=== PATIENT | male | born 1965 | race Caucasian/White ===

== ENCOUNTER 2025-01-24 09:03 | Emergency (ER) | payer BC, SELFPAY ==
--- NOTE | 2025-01-24 09:06 | ED_ITS ---
HPI - General Adult General Chief complaint: Skin/Abscess/Foreign Body Stated complaint: lyme disease Time Seen by Provider: 01/24/25 09:06 59-year-old male patient presents to the [facility] with request for a medication refill. Patient states he is from [place] and visiting from out of town and he is being treated for Lyme disease. Patient states he forgot his doxycycline at home and is just needing a couple days worth of the doxycycline medication. Patient states he was bit by a tick to the left side back in October and did have a bull's eye and has been taking doxycycline 100 mg b.i.d. and was on his 8th day of treatment when he left to go out of town. Patient states he is going to be in town for about 2-3 days. Patient denies any fevers states his only symptom is fatigue and that the bull's eye is starting to go away. Source: patient Mode of arrival: ambulatory Limitations: no limitations Related Data Home Medications ?Medication ?Instructions ?Recorded ?Confirmed ?Last Taken ?Type atorvastatin 20 mg tablet mg 01/24/25 Unknown History doxycycline hyclate 100 mg tablet mg 01/24/25 Unknown History Allergies Allergy/AdvReac Type Severity Reaction Status Date / Time No Known Allergies Allergy Verified 01/24/25 09:10 Review of Systems Review of Systems: CONSTITUTIONAL: Denies fever, chills, or sweats. positive fatigue EYES: Denies visual changes, redness, or discharge. ENT: Denies rhinorrhea, congestion, sore throat, or otalgia. CARDIOVASCULAR: Denies chest pain, palpitations, or edema. RESPIRATORY: Denies cough or dyspnea. GASTROINTESTINAL: Denies abdominal pain, nausea, vomiting, or diarrhea. GENITOURINARY: Denies dysuria or hematuria. SKIN: Denies rash or itching. positive bull's eye left upper thigh MUSCULOSKELETAL: Denies back pain, joint pain, or myalgia. NEUROLOGIC: Denies headache, numbness, or weakness. PSYCHIATRIC: Denies anxiety or depression. PMFSH Past Medical History Medical History (Updated 01/24/25 @ 09:32 by CINDY Tristan) Lyme disease Comments At the time of my signature I agree with nursing past medical history, surgical, social, and family history. There is no relevant family history pertinent to the presenting complaint. Exam Narrative: GENERAL: Well-appearing, well-nourished, and in no acute distress. HEAD: Normocephalic, atraumatic. EYES: PERRLA and EOMI. ENT: Nares clear, no rhinorrhea or epistaxis. Mucous membranes moist. NECK: Supple. No lymphadenopathy CHEST: Clear to auscultation. No respiratory distress. HEART: Regular rate and rhythm. No murmur heard. Normal peripheral pulses. ABDOMEN: Soft, nontender, nondistended, normal active bowel sounds. EXTREMITIES: Normal range of motion. No edema. SKIN: Warm, dry, no rash. patient has approximately 17 cm in circumference bull's-eye to the left upper thigh that is lightening up showing improvement. NEURO: No focal deficits. Alert and oriented x3. Course Course Level of Care: Express Care Visit Vital Signs Vital signs: Vital Signs Temperature 36.4 C L 01/24/25 09:12 Pulse Rate 64 01/24/25 09:12 Respiratory Rate 18 01/24/25 09:12 Blood Pressure 153/79 H 01/24/25 09:12 Pulse Oximetry 98 01/24/25 09:12 Oxygen Delivery Room Air 01/24/25 09:12 Temperature 36.4 C L 01/24/25 09:12 Pulse Rate 64 01/24/25 09:12 Respiratory Rate 18 01/24/25 09:12 Blood Pressure 153/79 H 01/24/25 09:12 Pulse Oximetry 98 01/24/25 09:12 Oxygen Delivery Room Air 01/24/25 09:12 Vital signs reviewed. Medical Decision Making MDM Narrative Medical decision making narrative: discussed with patient we will go ahead and order him some doxycycline 100 mg to take b.i.d. for a 3 day supply until he gets back home and can resume the rest of the doxycycline. Patient is aware of the plan of care denies any other questions or concerns at this time. Differential Diagnosis Differential Diagnosis: Differential diagnosis: Abscess, cellulitis, hidradenitis, laceration, puncture wound. Contact dermatitis, poison kelly, poison sumac, psoriasis, eczema, allergic reaction, drug reaction, scabies, tinea syphilis, lung disease, viral exanthema, pityriasis, erythema multiforme, Lyme disease Vital Signs Vital Signs: Vital Signs Temperature 36.4 C L 01/24/25 09:12 Pulse Rate 64 01/24/25 09:12 Respiratory Rate 18 01/24/25 09:12 Blood Pressure 153/79 H 01/24/25 09:12 Pulse Oximetry 98 01/24/25 09:12 Oxygen Delivery Room Air 01/24/25 09:12 Temperature 36.4 C L 01/24/25 09:12 Pulse Rate 64 01/24/25 09:12 Respiratory Rate 18 01/24/25 09:12 Blood Pressure 153/79 H 01/24/25 09:12 Pulse Oximetry 98 01/24/25 09:12 Oxygen Delivery Room Air 01/24/25 09:12 Critical Care Time Critical Care Time Critical Care Time: No Discharge Plan Discharge Clinical Impression: Acute Lyme disease, Medication refill Patient Disposition: Home Condition: Stable Instructions: Antibiotic Form, Doxycycline (By mouth), Lyme Disease (ED) Additional Instructions: Lyme disease is a bacterial infection spread by ticks. Antibiotics can treat Lyme disease. If you do not treat Lyme disease, it can lead to problems with your skin, joints, heart, and nervous system. These problems can develop weeks, months, or even years after you get the infection. Your doctor may prescribe antibiotics even if it is not yet certain that you have Lyme disease. Follow-up care is a catherine part of your treatment and safety.?Be sure to make and go to all appointments, and call your doctor or nurse advice line ([phone]?in most provinces and territories) if you are having problems. It's also a good idea to know your test results and keep a list of the medicines you take. How can you care for yourself at home? Take your antibiotics as directed. Don't stop taking them just because you feel better. You need to take the full course of antibiotics.Ask your doctor if you can take an gxun-rfy-cayerof pain medicine if needed, such as acetaminophen (Tylenol), ibuprofen (Advil, Motrin), or naproxen (Aleve). Read and follow all instructions on the label. How can you prevent Lyme disease? Avoid ticks. Learn where ticks are found in your community. Stay away from those areas if possible. Cover as much of your body as possible when you work or play in grassy or wooded areas. Wear a hat, a long-sleeved shirt, and long pants with the legs tucked into your socks. And keep in mind that it's easier to see ticks on light-coloured clothes. Use insect repellents, such as products containing DEET. You can spray them on your skin. Use products that contain 0.5% permethrin on your clothing and outdoor gear, such as your tent. You can also buy clothing already treated with permethrin. Take steps to control ticks on your property if you live in an area where Lyme disease occurs. Clear leaves, brush, tall grasses, woodpiles, and stone fences from around your house and the edges of your yard or garden. This may help get rid of ticks.When you come in from outdoors, check your body for ticks, including your groin, head, and underarms. The ticks may be about the size of a poppy seed. If no one else can help you check for ticks on your scalp, comb your hair with a fine-tooth comb.If you find a tick, remove it quickly. If you can't remove it with your fingers, use tweezers to grasp the tick as close to its mouth (the part in your skin) as possible. Slowly pull the tick straight out?do not twist or yank?until its mouth releases from your skin. If part of the tick stays in the skin, leave it alone. It will likely come out on its own in a few days.Check your clothing, outdoor gear, and pets. Ticks can come into your house on them. The ticks can then fall off and attach to you. Check your clothing and outdoor gear. Remove any ticks you find. Then put your clothing in a clothes dryer on high heat for about 4 minutes to kill any ticks that might remain. Check your pets for ticks after they have been outdoors. When should you call for help? Call your doctor or nurse advice line now?or seek immediate medical care if: You are confused or cannot think clearly.You have a headache or stiff neck.You have a new or worse rash.You have symptoms of infection, such as: Increased pain, swelling, warmth, or redness. Red streaks leading from the area. Pus draining from the area. A fever. Patient Language: Uzbek Prescriptions: New doxycycline hyclate 100 mg tablet 100 mg PO BID 3 Days Qty: 6 0RF No Action atorvastatin 20 mg tablet doxycycline hyclate 100 mg tablet Follow-up/Referrals: UNKNOWN,DOCTOR [Non-Staff] Time of Disposition: 09:21
[2025-01-24 09:12] VITALS: BP 153/79; PULSE 64; RESP 18; TEMP 36.4; O2SAT 98
== END 2025-01-24 09:22 | disposition home or self-care (01) ==
PROVIDERS: Emergency Provider Nurse Practitioner Family
DX: Z76.0 Encounter for issue of repeat prescription (principal); A69.20 Lyme disease, unspecified
CPT/HCPCS: 99203; 99211; G0463